=== PATIENT | female | born 1940 | race Caucasian/White ===

== ENCOUNTER 2023-09-01 08:20 | Day surgery (SDC) | payer MEDICARE ==
[2023-08-28 15:22] VITALS: BMI 21.9
[~2023-09-01 08:20] MED LIST: EPINEPHrine 0.3 MG in Ophthalmic Irrigation Solution 500 ML IRR SCH
[2023-09-01] MEDS ORDERED: Indocyanine Green 25 MG/10 ML VIAL ONE ×2 (08:51→10:46)
[2023-09-01] MEDS ORDERED: PHENYLephrine 2.5% Ophth Soln 15 ml Bottle ONE (09:43)
[2023-09-01] MEDS ORDERED: Cyclopentolate 1% Opth Drop 2 ML BOT ONE (09:43)
[2023-09-01] MEDS ORDERED: PROPOFOL 20 ML ONE (10:19)
[2023-09-01] MEDS ORDERED: fentaNYL 50 mcg/mL 1 mL Vial ONE (10:19)
[2023-09-01] MEDS ORDERED: Triamcinolone 40 MG/ML VIAL ONE (10:46)
[2023-09-01] MEDS ORDERED: Maxitrol 0.1% Opth Oint 3.5 GM TUBE ONE (10:46)
[2023-09-01] MEDS ORDERED: Lidocaine 4% PF 5 ML AMP ONE (10:46)
[2023-09-01] MEDS ORDERED: CEFAZOLIN 1 GM VIAL ONE (10:46)
[2023-09-01] MEDS ORDERED: Bupivacaine 0.75% 10 ML VIAL ONE (10:46)
[2023-09-01] MEDS ORDERED: Lidocaine 1% PF 5 ML VIAL ONE (10:46)
== END 2023-09-01 11:55 | disposition home or self-care (01) ==
LOC: SDC 08:20
PROVIDERS: ATTEND Ophthalmology Retina Specialist
PROC: 08T43ZZ Resection of Right Vitreous, Percutaneous Approach (ICD-10-PCS; principal; 2023-09-01)
PROC: 08NE3ZZ Release Right Retina, Percutaneous Approach (ICD-10-PCS; 2023-09-01)
DX: H35.371 Puckering of macula, right eye (principal); Z88.5 Allergy status to narcotic agent; Z88.6 Allergy status to analgesic agent; Z88.8 Allergy status to other drugs, medicaments and biological substances
CPT/HCPCS: 67042; J3010; J0171; J0690; J2704; J3301; J3490